=== PATIENT | female | born 1945 | race Caucasian/White ===

== ENCOUNTER 2019-04-20 12:45 | Observation (INO) | payer OTHER, SELFPAY ==
[2019-04-20] VITALS (9 sets, daily range): BP systolic 149–181; BP diastolic 74–114; PULSE 58–71; RESP 18–19; TEMP 36.1–36.9; O2SAT 96–100; BMI 20.4; BMI 19.6
[2019-04-20 13:01] LABS: Bedside Glucose 117 mg/dL (70-110)
--- NOTE | 2019-04-20 13:40 | CT_ITS ---
STUDY: CT BRAIN WITHOUT CONTRAST REASON FOR EXAM: Female, 73 years old. SYNCOPE EPISODE W/ CONFUSION RADIATION DOSAGE (If Supplied By Facility): CTDIvol = ( 44.99 ) mGy, DLP = ( 779.24 ) mGycm TECHNIQUE: Transaxial CT imaging of the brain was performed without administration of intravenous contrast material. Individualized dose optimization techniques were used for this CT. COMPARISON: No relevant priors. FINDINGS: Normal soft tissue structures. Normal calvarium. There is mild cerebral atrophy with widening of the extra-axial spaces and ventricular dilatation. Normal white matter tracts of the cerebral hemispheres. There are small punctate calcifications of the basal ganglia which are seen in the aging brain as a normal variant. Normal brainstem. Normal cerebellum. There is no intracranial hemorrhage. There are no findings of an acute ischemic infarction. Normal visualized paranasal sinuses. CT/Brain/Head without Contrast IMPRESSION: Chronic involutional changes of the brain. Electronically Signed: José Bui, at 14:14 EST , Service support ,
--- NOTE | 2019-04-20 13:42 | ED.DCSUM_ITS ---
- ER Visit Summary Date of Service: 04/20/19 Chief Complaint: [Confusion and syncope] History of Present Illness: The patient is a 73 F [presents to the emergency department with family members after she apparently had a syncopal episode while at a friend's house. Patient went to console a friend whose got his hand caught in a corncob pipe manufacturing supervisor. The family members that are currently with her unsure exactly of the events that took place. They brought her in because she keeps repeating herself and asking the same questions over and over again. Patient denies any injury. Patient tells me that she passes out easily at the site of blood. Patient tells me she has no medical history. She denies recent illness. No history of seizure. She is alert to person and place but not to time.] Physical Examination: [HEENT-PERRLA, EOMI. Cranial nerves II through XII grossly intact. TMs clear. Mucous membranes moist. No adenopathy. External evidence of trauma to her head. No C-spine tenderness on palpation. Cardiovascular-regular rate and rhythm without murmur or ectopy Lungs-clear to auscultation, chest wall stable without crepitus or subcu emphysema Abdomen-normoactive bowel sounds, soft, nontender, no rebound or rigidity, no peritoneal signs. Neuro mfor-cmbtvt-jthq and heel espinoza testing within normal limits, negative Romberg, negative for drift, fundi benign. NIH stroke scale was a 0. Extremities-intact ?4, normal range of motion, normal pulses, atraumatic] Test Results: [EKG obtained showed a sinus rhythm with a ventricular rate of 54 bpm with occasional PACs. CBC with differential obtained showed a white count of 8.0, hemoglobin 13.5, hematocrit 42, platelets 247. Chemistries were unremarkable. BUN was 21 and creatinine 1.08. Urinalysis was normal. CT scan of the brain without contrast showed chronic involutional changes otherwise nothing acute.] Emergency Department Course and Treatment: [Etiology of patient's syncope and perseveration is unclear at this point. Family members are telling me that they do not think patient fell or injured herself and that she was sitting when this syncopal episode occurred.] Treatment Plan: [Admit] Disposition: [Admit] Impression: [Mental status change Syncope] This note was generated with [employer] software. It may contain incorrect words, spelling, and punctuation that were not noted in review of the chart prior to signing ED Disposition - Plan for ED Patient: Referrals: Melania Ram MD [Primary Care Provider] -
[2019-04-20 13:54] LABS: Absolute Lymphocyte Count 1.78 X10^3/uL (0.83-4.51); Absolute Neutrophil Count 5.6 X10^3/uL (2.0-7.7); Basophil# 0.02 X10^3/uL; Basophil% 0.3 % (0-1); Eosinophil# 0.05 X10^3/uL; Eosinophils% 0.6 % (0-5); Hemoglobin 13.5 g/dL (12.0-15.0); Lymphocyte # 1.78 X10^3/ul (4.0); Lymphocyte % 22.3 % (19-41); Mean Corp Hgb Conc 32.1 g/dL (32-36); Mean Corpuscular Hgb 29.1 pg (27.0-32.0); Mean Corpuscular Volume 90.5 fL (81-99); Mean Platelet Vol. 10.1 fl (6.2-12.0); Monocyte# 0.48 X10^3/uL; NRBC Flagged by Analyzer 0 % (0-5); Neutrophil # 5.64 X10^3/uL (2.7-7.7); Neutrophil % 70.5 % (47-70); Platelet Count 247 K/mm3 (150-450); RBC Distribution Width CV 12.9 % (11.6-14.6); RBC Distribution Width SD 42.1 fl (35.1-43.9); Red Blood Count 4.64 M/mm3 (4.2-5.4)
[2019-04-20 14:03] LABS: Anion Gap 6 (5-15); BUN 21 mg/dL (7-18); BUN/Creat Ratio 19.4 RATIO (10-20); Calcium,Total 9.1 mg/dL (8.5-10.1); Chloride 104 mmol/L (98-107); Creatinine, Serum 1.08 mg/dL (0.55-1.02); EST Glomerular Filtration Rate 53 mL/min (>60); Est Glom Filt Rate - Afr Amer 64 mL/min (>60); Estimated Creatinine Clearance 39.48 ml/min; Glucose 113 mg/dL (74-106); Potassium 3.9 mmol/L (3.5-5.1); Sodium Level 137 mmol/L (136-145)
--- NOTE | 2019-04-20 14:15 | EKG12_ITS ---
Test Reason : Blood Pressure : / mmHG Vent. Rate : 054 BPM Atrial Rate : 054 BPM P-R Int : 112 ms QRS Dur : 086 ms QT Int : 464 ms P-R-T Axes : 011 019 019 degrees QTc Int : 440 ms Sinus bradycardia with sinus arrhythmia Poor R wave progression Confirmed by KAILEE SALAZAR, ANOOP ([id number]), publications editor BOBBY FIGUEROA ([id number]) on 04/24/2019 10:13:48 AM Referred By: Theo Pierre Confirmed By:ANOOP DUGAN MD
[2019-04-20 14:16] LABS: Bacteria 0 SEEN /hpf (None Seen); Mucous, Urine 0 SEEN /hpf (<or=2+); Red Blood Cells-Urine 0 SEEN /hpf (0-5); Squamous Epithelial Cells - UA 0 SEEN /hpf (5-10); White Blood Cells 0 SEEN /hpf (0-5)
[2019-04-20 14:17] LABS: Color, Urine Yellow (Yellow); Glucose, Dipstick Normal (Normal); Ketone-Dipstick 15 mg/dl (Negative); Leukocyte Esterase-Dipstick 25 /ul (Negative); Nitrite-Dipstick Negative (Negative); Occult Blood-Urine Negative /ul (Negative); Protein-Dipstick Negative (Negative); Urine Bilirubin Dipstick Negative (Negative); Urine Clarity Clear (Clear); Urine Urobilinogen Normal (Normal); Urine pH 6.5 (5.0 - 8.0)
[2019-04-20] MEDS: 0.9% Normal Saline 1,000 ML 150 ML IV (14:17)
--- NOTE | 2019-04-20 15:22 | HP.PCM_ITS ---
History of Present Illness Date of Admission: 04/20/19 Chief Complaint: syncope The patient is a 73 year old F patient was apparently in her normal state of health and then patient went to a neighbor's house where patient had lost his hand and forearm equipment and apparently . Patient was at the house and passed out. The people that witnessed are not currently available so history obtained through emergency room physician as well as family members were not present during the event. Patient keeps perseverating about how she used to faint when she was younger when she was seen at the site of blood, check getting his head cut off etc. Patient denies any recent syncopal episodes in the family who is present denies any episodes that they are aware of. But they are concerned as the patient just appears to be confused and keeps perseverating about her history of fainting when she was a child. They state that she is not typically like this. They are not aware of any urinary incontinence that the patient may have experienced. Patient family states that she was shaking on her way over but was awake at that time. It is unclear if the patient was shaking at the neighbor's house. Patient has no history of seizures. [] Past Medical History Allergies No Known Allergies Allergy (Verified 04/20/19 12:48) Home Medications: Ambulatory Orders Medication Instructions Recorded NK 04/20/19 Smoking Status: Never smoker Tobacco Use: Non-smoker - *Family History Maternal History Items: Stroke Review of Systems Constitutional: Denies: Anorexia, Chills, Fever, Night Sweats, Malaise, Weakness Eyes: Denies: Blurred vision, Double vision HEENT: Denies: Head Aches, Sinus Congestion, Sinus Drainage Cardiovascular: Denies: Chest Pain, Edema, Palpitations Respiratory: Denies: Cough, Shortness of breath at rest, Sputum production Gastrointestinal: Denies: Abdominal Pain, Nausea, Vomiting Genitourinary: Denies: Dysuria Musculoskeletal: Denies: Joint Pain, Joint Tenderness Skin: Denies: Rash, Wounds Neurological: Denies: Numbness, Tingling, Focal weakness Psychiatric: Denies: Anxiety, Depression Hematologic/ Lymphatic: Denies: Easy Bruising, Easy Bleeding, Hx of blood clot Comment: All review systems are otherwise negative except for as mentioned above and in HPI. VTE Information - Inpt Only VTE Present on Admission: No VTE Mechan Device Prophylaxis: None VTE Pharm Prophylaxis ordered?: No Reason prophylaxis not ordered:: Treatment Not Indicated - Physical Exam Vitals/I&O's: Vital Signs Temp Pulse Resp BP Pulse Ox 36.1 C L 61 18 167/74 H 100 04/20/19 12:46 04/20/19 15:04 04/20/19 14:43 04/20/19 15:04 04/20/19 14:43 Oxygen Delivery Method Room Air Weight: 53.9 kg Body Mass Index (BMI) 20.4 General: Alert, Cooperative, No apparent distress, - - Perseverating. Oriented to place and self. HEENT: Atraumatic, PERRLA, EOMI, Normocephalic Oral: Moist Mucosa, No Gingival or Mucosal Lesions/ Ulcerations Neck: No Nodes, Trachea Midline Lungs: Clear to auscultation, Normal air movement, No rhonchi, No wheeze, No rales Cardiovascular: Regular rate, Regular Rhythm, Normal S1, Normal S2, No murmurs Abdomen: Bowel Sounds Present, Soft, Non Tender, Non-Distended, No Hepato- splenomegaly Extremities: No edema, No Calf Tenderness Skin: No rashes, No breakdown Musculoskeletal: No Tenderness to Palpation of Joints or Extremities, No Muscle Wasting Neurological: Cranial nerves II-XII grossly intact, Motor Exam 5/5 strength throughout Psych/Mental Status: Normal Affect, Appropriate Laboratory Results 04/20/19 12:55: POC Glucose 117 H 04/20/19 13:06: WBC 8.0, RBC 4.64, Hgb 13.5, Hct 42.0, MCV 90.5, MCH 29.1, MCHC 32.1, RDW Std Deviation 42.1, RDW Coeff of Kris 12.9, Plt Count 247, MPV 10.1, Immature Gran % (Auto) 0.300, Neut % (Auto) 70.5 H, Lymph % (Auto) 22.3, Clay % (Auto) 6.0, Eos % (Auto) 0.6, Baso % (Auto) 0.3, Absolute Neuts (auto) 5.6, Absolute Lymphs (auto) 1.78, Nucleated RBC % 0 04/20/19 13:06: Sodium 137, Potassium 3.9, Chloride 104, Carbon Dioxide 27.0, Anion Gap 6, BUN 21 H, Creatinine 1.08 H, Estim Creat Clear Calc 39.48, Est GFR (MDRD) Af Amer 64, Est GFR (MDRD) Non-Af 53 L, BUN/Creatinine Ratio 19.4, Glucose 113 H, Calcium 9.1, Troponin I < 0.015 04/20/19 14:10: Urine Color Yellow, Urine Clarity Clear, Urine pH 6.5, Ur Specific [place] 1.010, Urine Protein Negative, Urine Glucose (UA) Normal, Urine Ketones 15 H, Urine Occult Blood Negative, Urine Nitrite Negative, Urine Bilirubin Negative, Urine Urobilinogen Normal, Ur Leukocyte Esterase 25 H, Urine RBC 0 SEEN, Urine WBC 0 SEEN, Ur Squamous Epith Cells 0 SEEN, Urine Bacteria 0 SEEN, Urine Mucus 0 SEEN Clinical Impression(s) from Imaging Studies Brain CT 04/20/19 13:40 IMPRESSION: Chronic involutional changes of the brain. Electronically Signed: José Bui, at 14:14 EST , Service support , Assessment/Plan 1. syncope * odd presentation (and incomplete history) * may be vasovagal, but will need to eval for seizure * check MRI brain, check EEG. after these testing would recommend teleneurology consult * I am concerned for seizure given the protracted the patient is currently experiencing (per the family) * check orthostatic vitals. 2. VTE prophylaxis: low-risk given observation status. Code Visit OBSV E&M: 68755 Initial observation care L3
--- NOTE | 2019-04-20 15:47 | ECHOD_ITS ---
Reason For Study: SYNCOPE Procedure This was a 2D Doppler, Color Flow transthoracic echocardiogram. The exam was of adequate technical quality. Exam performed portable in patient room. Left Ventricle Normal LV size. Left ventricular systolic function is normal. The estimated ejection fraction is 60 %. No evidence for diastolic dysfunction. No regional wall motion abnormalities noted. Right Ventricle Normal RV size. Normal systolic function. Atria Normal left atrium. Normal right atrium. No doppler evidence for ASD. Mitral Valve There is no mitral annular calcification. Mild diffuse mitral valve thickening. Equivocal mitral valve prolapse. Trivial mitral valve insufficiency. Tricuspid Valve Normal tricuspid valve. Mild (1+) tricuspid valve insufficiency. Right ventricular systolic pressure estimated to be 28 mmHg. Aortic Valve Trisinus/trileaflet aortic valve. Normal aortic valve. Pulmonic Valve The pulmonic valve is not well visualized. Trivial pulmonic valve insufficiency. Great Vessels Normal sized aortic root. Pericardium/Pleural No pericardial effusion. MMode/2D Measurements & Calculations LVIDd: 3.9 cm IVSd: 0.79 cm Ao root diam: 3.1 cm LVIDs: 2.7 cm LVPWd: 0.85 cm RVDd: 3.3 cm FS: 31.6 % LAV(MOD-bp): 19.9 ml LVAd ap4: 22.9 cm2 SV(MOD-sp4): 32.4 ml LAV(MOD-bp) Indexed: 12.9 ml/m2 EDV(MOD-sp4): 61.2 ml LAV(MOD-sp2): 20.7 ml EDV(sp4-el): 63.0 ml LAV(MOD-sp4): 16.4 ml LVAs ap4: 14.0 cm2 ESV(MOD-sp4): 28.7 ml ESV(sp4-el): 28.6 ml EF(MOD-sp4): 53.0 % EF(sp4-el): 54.6 % SV(sp4-el): 34.4 ml LA A4 area: 9.1 cm2 LA dimension(2D): 2.6 cm RA A4 area: 12.2 cm2 Time Measurements MV dec time: 0.33 sec Doppler Measurements & Calculations MV E max ritchie: 52.9 cm/sec Lat Peak E' Ritchie: 5.6 cm/sec Med Peak E' Ritchie: 4.8 cm/sec MV A max ritchie: 71.8 cm/sec E/E' lat: 9.4 E/E' med: 10.9 MV E/A: 0.74 Ao V2 max: 118.2 cm/sec LV V1 max: 74.6 cm/sec PA V2 max: 73.3 cm/sec Ao max P.6 mmHg LV V1 max P.2 mmHg TR max ritchie: 249.5 cm/sec TR max P.9 mmHg Interpretation Summary Left ventricular systolic function is normal. The estimated ejection fraction is 60 %. Mild diffuse mitral valve thickening. Equivocal mitral valve prolapse. Trivial mitral valve insufficiency. Mild (1+) tricuspid valve insufficiency. Trivial pulmonic valve insufficiency. Right ventricular systolic pressure estimated to be 28 mmHg. No evidence for diastolic dysfunction. Ordering Physician: Theo Pierre Referring Physician: KHOA DAVIS Performed By: Denisa Rivera RDCS
--- NOTE | 2019-04-20 15:47 | MRI_ITS ---
HISTORY: syncopal episode after seeing blood, confusion. Extreme confusion. Blackout. 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 Hysterectomy. Appendectomy. TECHNIQUE: Routine brain MR protocol was performed without gadolinium. COMPARISON: CT scan of brain from 4 and half hours earlier FINDINGS: # of images incl. paperwork: 278 Periventricular deep and subcortical white matter disease is minimal Brain volume is normal. No acute stroke is present. Mucuo-serous retention cyst are present within the inferior aspect of the right maxillary sinus. Physiologic calcifications within the medial aspect of the lentiform nuclei is again demonstrated.. There are no masses, herniations, nor deviations. Orbits and globes are normal. The pituitary and sella turcica are not enlarged. Flow is present within major central intracranial arteries. MRI/Brain without Contrast IMPRESSION: No acute disease perceived.. at 2032 Reported and signed by: Israel Vázquez MD Electronically Signed: Israel Vázquez MD at 20:31 EST Tel , Service support ,
[2019-04-21] VITALS (7 sets, daily range): BP systolic 109–127; BP diastolic 60–81; PULSE 57–87; RESP 14–19; TEMP 36.7–37; O2SAT 92–94
--- NOTE | 2019-04-21 04:46 | NURSING ---
Vanegas removed a this time. Patient tolerated well.
--- NOTE | 2019-04-21 10:53 | EKG12_ITS ---
Test Reason : ARRYTHMIA Blood Pressure : / mmHG Vent. Rate : 060 BPM Atrial Rate : 060 BPM P-R Int : 118 ms QRS Dur : 082 ms QT Int : 450 ms P-R-T Axes : 000 040 022 degrees QTc Int : 450 ms Normal sinus rhythm Low voltage QRS Poor R wave progression Borderline ECG Confirmed by KAILEE SALAZAR, ANOOP ([id number]), newspaper editor managing BOBBY FIGUEROA ([id number]) on 04/24/2019 10:35:26 AM Referred By: Theo Pierre Confirmed By:ANOOP DUGAN MD
--- NOTE | 2019-04-21 14:49 | DCINST_ITS ---
You will use the following diet at home:: No restrictions Your food should be the consistency of: Regular Your liquids should be the consistency of: Regular/Thin Discharge Activity: Return to Normal Activity Allergies/Adverse Reactions: Allergies No Known Allergies Allergy (Verified 04/20/19 12:48) Medications to take at Discharge NK 04/20/19 Primary Care Physician: Melania Ram MD [Primary Care Provider] - Please follow up with your Primary Care Physician in: 1-2 weeks Test Results: Test results from this visit will be discussed in further detail at your follow- up appointment, if applicable. Proposed Discharge Date: 04/21/19
--- NOTE | 2019-04-21 14:53 | DS.PCM_ITS ---
<Alan Raman - Last Filed: 04/21/19 14:53> Discharge Date and Diagnosis Date of Admission: 04/20/19 Date of Discharge: 04/21/19 - Primary Discharge Diagnosis Syncope - vasovagal Hospital Course and Treatment Imaging Results: IMAGING: Echo: Interpretation Summary The study was technically difficult. Diluted definity 2ml given slow IV push to enhance endocardial definition. The estimated ejection fraction is 60 %. No evidence for diastolic dysfunction. Trivial tricuspid valve insufficiency. The study was technically difficult. RAD/Chest PA and Lateral IMPRESSION: Borderline cardiomegaly. Operations: None Procedures: 2-D Echocardiogram Summary of Care Provided: Hospital course: The patient is a 73 year old F with no significant PmHx who presented to the ER with syncope. She had been working on seeing an contracts attorney and having paperwork signed, working on preparing for a move, and just found out that her best friends after having his hand chopped off. She had lost consciousness in her car at her friend's house and was found by her friend. There was a report of some shaking when found. She had no hx seizure. She was insistent about how as a child she would easily pass out easily at the sight of blood. In the ER troponin was negative, CT brain was negative. Blood work revealed mildly elevated BUN and Cr. She had elevated BP in the ER. She was admitted to PCU for syncope. No events on tele. She had a negative EEG, negative echo, and Negative MRI of the brain. She had no further symptoms. She was felt to have had a vasovagal event. She was discharged home in stable condition. She will need to follow up with her PCP in 1-2 weeks. This patient was seen by Alan Raman PA-C under the supervision of Doctor Wilkerson. [] - Physical Exam Vitals/I&O's: Vital Signs Temp Pulse Resp BP Pulse Ox 98.0 F 70 14 127/60 H 92 04/21/19 09:00 04/21/19 09:00 04/21/19 09:00 04/21/19 09:00 04/21/19 09:00 Oxygen Delivery Method Room Air Weight: 115 lb Body Mass Index (BMI) 19.6 Orthostatic Vital Signs Start: 04/21/19 06:19 Freq: q24h Status: Active Protocol: Activity Type Activity Date Activity User E-Sign Co-Sign Detail Recorded Client Recorded Date Recorded By Document 04/21/19 06:19 NAT [id number] 04/21/19 06:26 EEA 04/21/19 06:19 Orthostatic Vitals Standing -Blood Pressure (90/60-120/80) 109/81 H -Extremity Use Left Arm Sitting -Blood Pressure (90/60-120/80) 119/80 -Extremity Use Left Arm Lying -Blood Pressure (90/60-120/80) 127/78 H -Extremity Use Left Arm Intake and Output for Last 24 Hours 04/19/19 04/20/19 04/21/19 23:59 23:59 23:59 Intake Total 592.5 / 592.5 690 / 690 Balance 592.5 / 592.5 690 / 690 General: Alert, Oriented x3, Cooperative HEENT: Atraumatic, PERRLA, EOMI, Normocephalic Neck: Supple, No JVD, Negative Carotid Bruits Lungs: Clear to auscultation, Normal air movement Cardiovascular: Regular rate, No murmurs Abdomen: Bowel Sounds Present, Soft, Non Tender Extremities: No edema, Capillary Refill Less than 3 Seconds Skin: No rashes, No breakdown Musculoskeletal: No Tenderness to Palpation of Joints or Extremities Neurological: Cranial nerves II-XII grossly intact Psych/Mental Status: Normal Affect, Appropriate, Alert and oriented to time, place, person, mood and affect Laboratory Results 04/20/19 16:27: Troponin I 0.034 04/20/19 19:48: Troponin I 0.049 H 04/21/19 11:53: Troponin I < 0.015 Current Medications Acetaminophen (Tylenol) 650 mg PO Q6H PRN PRN PRN Reason: Pain Score 1-3/Temp > 100.7 F Ondansetron HCl (Zofran) 4 mg IV Q8H PRN PRN PRN Reason: NAUSEA/VOMITING Sodium Chloride () 10 - 40 ml IV UD PRN PRN Reason: SALINE FLUSH Discharge Diet: No Restrictions Discharge Activity: Return to Normal Activity Home Medications: Medications to take at Discharge NK 04/20/19 Primary Care Physician: Melania Ram MD [Primary Care Provider] - Please follow up with your Primary Care Physician in: 1-2 weeks Disposition: Home Minutes spent on discharge:: 35 Patient Condition:: Stable Medical Necessity - Tobacco Use Smoking Status: Never smoker Tobacco Use: Non-smoker Meaningful Use Info Meaningful Use Diagnoses (Choose all that apply): None applicable <Lizeth Wilkerson - Last Filed: 04/21/19 17:03> Hospital Course and Treatment Summary of Care Provided: Patient seen by Alan Raman PA-C under my supervision The patient is a 73 year old F with no significant past medical history was admitted with complaint of syncope. Patient states that she just found out that a neighbor had after having his son choked up and falling into her machine. She went to see her veterinary laboratory technician and was subsequently found blacked out in her car. There was no one with her at that time and was reported that there was also some shaking. Someone called her children with her phone by the time they got there she was alert but had no recollection of what happened. They could not see how long she was blacked out for. Patient states that since childhood she has always had syncopal episodes with stressful events but has never been told that she has a seizure. She was admitted and managed for syncope likely vasovagal. Troponin was initially negative though did trend up slightly to 0.049, repeat troponin after that was negative. MRI of the brain was ordered and was negative. EEG was also ordered and was negative. She had a 2D echo which showed normal left ventricular size and function with EF of 60% and no evidence of diastolic dysfunction and no regional motion abnormalities noted. Syncope was therefore thought to be likely due to a vasovagal syncope. Patient remained stable and was discharged home on 04/21/2019. She is to follow-up with her primary care doctor within 1-2 weeks. Patient seen and examined prior to discharge. She was stable and had no complaints and wanted to go home. Review systems otherwise negative. Labs and vitals reviewed. Home medications reviewed and reconciled. o/e: Vital Signs Height 5 ft 4.17 in Weight: 115 lb Weight in Pounds 115.0 lbs Pulse Ox 94 Temperature 98.0 F Pulse Rate [Standing] 71 Pulse Rate [Sitting] 62 Pulse Rate [Lying] 61 Pulse Rate 75 Respiratory Rate 14 Blood Pressure [Standing] 109/81 Blood Pressure [Sitting] 119/80 Blood Pressure [Lying] 127/78 Blood Pressure 113/61 Blood Pressure Position Semi-Fowlers [] General: Alert, Oriented x3, Cooperative HEENT: Atraumatic, PERRLA, EOMI, Normocephalic Neck: Supple, No JVD, Negative Carotid Bruits Lungs: Clear to auscultation, Normal air movement Cardiovascular: Regular rate, No murmurs Abdomen: Bowel Sounds Present, Soft, Non Tender Extremities: No edema, Capillary Refill Less than 3 Seconds Skin: No rashes, No breakdown Musculoskeletal: No Tenderness to Palpation of Joints or Extremities Neurological: Cranial nerves II-XII grossly intact Psych/Mental Status: Normal Affect, Appropriate, Alert and oriented to time, place, person, mood and affect Plan as above. Rest as per Alan Raman PA-C's notes which I reviewed and endorsed. - Physical Exam Vitals/I&O's: Vital Signs Temp Pulse Resp BP Pulse Ox 98.0 F 75 14 113/61 94 04/21/19 14:54 04/21/19 15:00 04/21/19 14:54 04/21/19 14:54 04/21/19 14:54 Oxygen Delivery Method Room Air Weight: 115 lb Body Mass Index (BMI) 19.6 Orthostatic Vital Signs Start: 04/21/19 06:19 Freq: q24h Status: Active Protocol: Activity Type Activity Date Activity User E-Sign Co-Sign Detail Recorded Client Recorded Date Recorded By Document 04/21/19 06:19 EEA [id number] 04/21/19 06:26 EEA 04/21/19 06:19 Orthostatic Vitals Standing -Blood Pressure (90/60-120/80) 109/81 H -Extremity Use Left Arm Sitting -Blood Pressure (90/60-120/80) 119/80 -Extremity Use Left Arm Lying -Blood Pressure (90/60-120/80) 127/78 H -Extremity Use Left Arm Intake and Output for Last 24 Hours 04/19/19 04/20/19 04/21/19 23:59 23:59 23:59 Intake Total 592.5 / 592.5 690 / 690 Balance 592.5 / 592.5 690 / 690 Laboratory Results 04/20/19 16:27: Troponin I 0.034 04/20/19 19:48: Troponin I 0.049 H 04/21/19 11:53: Troponin I < 0.015 Code Visit OBSV E&M: [id number] Observation care discharge
--- NOTE | 2019-04-21 16:33 | CHAPLAIN ---
Type of Pastoral Visit _x__ Initial Visit ___ Follow-up Visit ___ On-call Visit ___ General Patient Visit ___ Spiritual Assessment ___ Family Conference ___ Bereavement ___ Rapid Response ___ Code Blue ___ Other (describe below) Pastoral Care Referral From _x__ Patient ___ Family ___ Nurse ___ Physician ___ Farmworker [employer] ___ Assistant Women'S Soccer Coach ___ Other (describe below) Sacrament/Intervention _x__ Active listening ___ Anointing ___ Congregation ___ Bereavement ___ Communion _x__ Blank exploration ___ ___ Life review _x__ Prayer ___ Reconciliation ___ Sacrament of Sick _x__ Supportive presence ___ Wedding ___ Other (describe below) Pastoral Comments
== END 2019-04-21 14:50 | disposition home or self-care (01) ==
LOC: PCU 15:34 → ED 15:40 → PCU 16:13
PROVIDERS: Physician Assistant; Emergency Provider Emergency Medicine; Visit Provider Student in an Organized Health Care Education/Training Program
DX: R55 Syncope and collapse (principal); R41.82 Altered mental status, unspecified; I08.1 Rheumatic disorders of both mitral and tricuspid valves; R00.1 Bradycardia, unspecified
CPT/HCPCS: 36415; 70450; 70551; 80048; 81001; 82962; 84484; 85025; 93005; 93306; 95819; 96360; 96361; 97161; 97165; 99218; 99285; J7030; A4216; G0378